=== PATIENT | female | born 1995 | race Hispanic/Latino ===

== ENCOUNTER 2021-08-26 16:48 | Emergency (ER) | payer OTHER ==
[~2021-08-26] VITALS: Ht 154.9 cm; Wt 63.5 kg
[2021-08-26 17:12] LABS: APPEARANCE,URINE Clear (CLEAR); BILIRUBIN,URINE Negative (NEGATIVE); COLOR,URINE Dark Yellow (YELLOW); GLUCOSE, URINE (UA) Negative (NEGATIVE); KETONES,URINE 15 mg/dL (NEGATIVE); LEUKOCYTE ESTERASE ,URINE Negative (NEGATIVE); NITRATE,URINE Negative (NEGATIVE); OCCULT BLOOD,URINE Negative (NEGATIVE); PROTEIN,URINE POS 1+ mg/dL (NEGATIVE)
[2021-08-26 17:33] LABS: RBC,URINE 0-1 /HPF (0-1); WBC,URINE 0-1 /HPF (0-1)
[2021-08-26 17:34] LABS: BACTERIA,URINE Rare /HPF (None Seen); HYALINE CASTS, URINE 0-1 /LPF (0-1 /LPF); MUCUS,URINE Few LPF (None Seen); SQUAMOUS EPITHELIAL CELL,UR Few /HPF (0-2)
[2021-08-26 17:39] LABS: BASOPHILS % (AUTO) 0.3 % (0.0-5.0); HEMATOCRIT 36.2 % (36-48); LYMPHOCYTES % (AUTO) 18.1 % (21.0-51.0); MEAN CORPUSCULAR HEMOGLOBIN 25.8 pg (27.0-33.0); MEAN CORPUSCULAR VOLUME 80.4 fL (79-99); MONOCYTES % (AUTO) 8.9 % (3.0-13.0); NEUTROPHILS % (AUTO) 72.4 % (40.0-77.0); PLATELET COUNT (AUTO) 266 K/uL (130-400); RED CELL DISTRIBUTION WIDTH 15.4 % (11.0-15.5)
[2021-08-26] MEDS ORDERED: 0.9%NACL 1000ML 1,000 ML IV ONE (18:30)
[2021-08-26] MEDS ORDERED: ONDANSETRON 4MG INJ IVP ONE (18:30)
[2021-08-26 19:05] LABS: ALBUMIN 4.1 g/dL (3.5-5.0); BILIRUBIN,TOTAL 0.6 mg/dL (0.2-1.0); CREATININE 0.8 mg/dL (0.5-1.5); POTASSIUM 3.6 mmol/L (3.5-5.1); TOTAL PROTEIN, SERUM 8.3 g/dL (6.0-8.3)
[2021-08-26] MEDS ORDERED: ONDANSETRON 4MG INJ ONE (19:41)
[2021-08-26 22:46] VITALS: BP 98/60
== END 2021-08-26 22:59 | disposition home or self-care (01) ==
LOC: EDH 16:48
DX: O20.0 Threatened abortion (principal); Z3A.01 Less than 8 weeks gestation of pregnancy
CPT/HCPCS: 36415; 76817; 80053; 81001; 84702; 85025; 86900; 86901; 96361; 96374; 99284; J2405

== ENCOUNTER 2021-08-30 20:01 | Emergency (ER) | payer OTHER ==
[~2021-08-30] VITALS: Ht 154.9 cm; Wt 62.1 kg
[2021-08-30 21:10] LABS: BASOPHILS % (AUTO) 0.4 % (0.0-5.0); EOSINOPHILS % (AUTO) 0.3 % (0.0-8.0); LYMPHOCYTES % (AUTO) 23.4 % (21.0-51.0); MEAN CORPUSCULAR HEMOGLOBIN 26.7 pg (27.0-33.0); MEAN CORPUSCULAR HGB CONC 33.1 g/dL (32.0-36.0); MEAN CORPUSCULAR VOLUME 80.5 fL (79-99); MONOCYTES % (AUTO) 8.4 % (3.0-13.0); PLATELET COUNT (AUTO) 289 K/uL (130-400); RED BLOOD CELL COUNT(AUTO) 4.35 MIL/uL (4.00-5.50); RED CELL DISTRIBUTION WIDTH 15.8 % (11.0-15.5); WHITE BLOOD COUNT (AUTO) 7.7 K/uL (4.8-10.8)
[2021-08-30 21:25] LABS: CREATININE 0.8 mg/dL (0.5-1.5); POTASSIUM 3.7 mmol/L (3.5-5.1)
[2021-08-30 21:34] VITALS: BP 121/69
[2021-08-30 21:38] LABS: APPEARANCE,URINE Clear (CLEAR); BILIRUBIN,URINE Negative (NEGATIVE); COLOR,URINE Yellow (YELLOW); GLUCOSE, URINE (UA) Negative (NEGATIVE); KETONES,URINE Negative (NEGATIVE); LEUKOCYTE ESTERASE ,URINE Negative (NEGATIVE); NITRATE,URINE Negative (NEGATIVE); OCCULT BLOOD,URINE Large (NEGATIVE); PROTEIN,URINE Trace mg/dL (NEGATIVE)
[2021-08-30 21:43] LABS: HCG,QUAL RESULT POSITIVE (NEGATIVE)
[2021-08-30 21:51] LABS: BACTERIA,URINE Few /HPF (None Seen); MUCUS,URINE Few LPF (None Seen); SQUAMOUS EPITHELIAL CELL,UR Few /HPF (0-2)
[2021-08-30 22:00] LABS: BILIRUBIN,TOTAL 0.5 mg/dL (0.2-1.0)
== END 2021-08-30 22:18 | disposition home or self-care (01) ==
LOC: EDH 20:01
DX: O20.0 Threatened abortion (principal); Z3A.01 Less than 8 weeks gestation of pregnancy
CPT/HCPCS: 36415; 76817; 80053; 81001; 81025; 84702; 85025; 86900; 86901

== ENCOUNTER 2021-09-03 12:26 | Emergency (ER) | payer OTHER ==
[~2021-09-03] VITALS: Ht 154.9 cm; Wt 62.6 kg
[2021-09-03 12:55] LABS: BASOPHILS % (AUTO) 0.6 % (0.0-5.0); EOSINOPHILS % (AUTO) 0.6 % (0.0-8.0); HEMATOCRIT 37.1 % (36-48); LYMPHOCYTES % (AUTO) 23.5 % (21.0-51.0); MEAN CORPUSCULAR HGB CONC 33.4 g/dL (32.0-36.0); MEAN CORPUSCULAR VOLUME 80.7 fL (79-99); MONOCYTES % (AUTO) 9.2 % (3.0-13.0); NEUTROPHILS % (AUTO) 65.7 % (40.0-77.0); PLATELET COUNT (AUTO) 281 K/uL (130-400); RED CELL DISTRIBUTION WIDTH 16.6 % (11.0-15.5); WHITE BLOOD COUNT (AUTO) 7.2 K/uL (4.8-10.8)
[2021-09-03 12:59] LABS: APPEARANCE,URINE Clear (CLEAR); BILIRUBIN,URINE Negative (NEGATIVE); COLOR,URINE Yellow (YELLOW); GLUCOSE, URINE (UA) Negative (NEGATIVE); KETONES,URINE Negative (NEGATIVE); LEUKOCYTE ESTERASE ,URINE Small (NEGATIVE); NITRATE,URINE Negative (NEGATIVE); OCCULT BLOOD,URINE Large (NEGATIVE); PROTEIN,URINE Negative (NEGATIVE); UROBILINOGEN,URINE 0.2 mg/dL (0.2-1.0)
[2021-09-03 13:00] VITALS: BP 120/73
[2021-09-03 13:04] LABS: CREATININE 0.7 mg/dL (0.5-1.5); POTASSIUM 4.1 mmol/L (3.5-5.1)
[2021-09-03 13:32] LABS: ALBUMIN 4.3 g/dL (3.5-5.0); BILIRUBIN,TOTAL 0.5 mg/dL (0.2-1.0); TOTAL PROTEIN, SERUM 8.7 g/dL (6.0-8.3)
[2021-09-03 13:44] LABS: BACTERIA,URINE Rare /HPF (None Seen); SQUAMOUS EPITHELIAL CELL,UR Rare /HPF (0-2); WBC,URINE 0-1 /HPF (0-1)
== END 2021-09-03 14:39 | disposition home or self-care (01) ==
LOC: EDH 12:26
DX: O20.0 Threatened abortion (principal); Z3A.01 Less than 8 weeks gestation of pregnancy
CPT/HCPCS: 36415; 76801; 80053; 81001; 84702; 85025; 86900; 86901

== ENCOUNTER 2021-10-14 19:41 | Emergency (ER) | payer OTHER ==
[~2021-10-14] VITALS: Ht 154.9 cm; Wt 63.5 kg
[2021-10-14 19:42] VITALS: BP 113/82
[2021-10-14 20:07] LABS: APPEARANCE,URINE CLEAR (CLEAR); BILIRUBIN,URINE NEGATIVE (NEGATIVE); COLOR,URINE YELLOW (YELLOW); GLUCOSE, URINE (UA) NEGATIVE (NEGATIVE); KETONES,URINE NEGATIVE (NEGATIVE); LEUKOCYTE ESTERASE ,URINE NEGATIVE (NEGATIVE); NITRATE,URINE NEGATIVE (NEGATIVE); OCCULT BLOOD,URINE MODERATE (NEGATIVE); PROTEIN,URINE NEGATIVE (NEGATIVE); UROBILINOGEN,URINE 0.2 mg/dL (0.2-1.0)
[2021-10-14 20:14] LABS: HCG,QUAL RESULT POSITIVE (NEGATIVE)
[2021-10-14 20:16] LABS: BASOPHILS % (AUTO) 0.5 % (0.0-5.0); EOSINOPHILS % (AUTO) 1.3 % (0.0-8.0); HEMATOCRIT 35.6 % (36-48); LYMPHOCYTES % (AUTO) 27.5 % (21.0-51.0); MEAN CORPUSCULAR HEMOGLOBIN 28.5 pg (27.0-33.0); MEAN CORPUSCULAR HGB CONC 34.6 g/dL (32.0-36.0); MEAN CORPUSCULAR VOLUME 82.4 fL (79-99); MONOCYTES % (AUTO) 8.6 % (3.0-13.0); NEUTROPHILS % (AUTO) 61.6 % (40.0-77.0); PLATELET COUNT (AUTO) 219 K/uL (130-400); RED BLOOD CELL COUNT(AUTO) 4.32 MIL/uL (4.00-5.50); RED CELL DISTRIBUTION WIDTH 16.6 % (11.0-15.5); WHITE BLOOD COUNT (AUTO) 7.9 K/uL (4.8-10.8)
[2021-10-14 20:27] LABS: CREATININE 0.7 mg/dL (0.5-1.5)
[2021-10-14 20:28] LABS: WBC,URINE 0-1 /HPF (0-1)
[2021-10-14 20:29] LABS: BACTERIA,URINE Rare /HPF (None Seen); SQUAMOUS EPITHELIAL CELL,UR Rare /HPF (0-2)
[2021-10-14 20:50] LABS: ALBUMIN 3.4 g/dL (3.5-5.0); BILIRUBIN,TOTAL 0.2 mg/dL (0.2-1.0); TOTAL PROTEIN, SERUM 7.7 g/dL (6.0-8.3)
== END 2021-10-14 22:51 | disposition home or self-care (01) ==
LOC: EDH 19:41
DX: O20.0 Threatened abortion (principal); Z3A.11 11 weeks gestation of pregnancy
CPT/HCPCS: 36415; 76801; 80053; 81001; 81025; 84702; 85025; 86900; 86901

== ENCOUNTER 2022-03-19 16:06 | Observation (INO) | payer OTHER ==
[~2022-03-19] VITALS: Ht 154.9 cm; Wt 81.6 kg
[2022-03-19 16:20] VITALS: BP 130/87
[2022-03-19] MEDS ORDERED: TERBUTALINE SULFATE VIAL 1MG/ML SQ PRN (17:30)
[2022-03-19] MEDS ORDERED: LACTATED RINGERS 1000ML 1,000 ML IV SCH (17:30)
[2022-03-19 17:45] LABS: APPEARANCE,URINE CLEAR (CLEAR); BILIRUBIN,URINE NEGATIVE (NEGATIVE); COLOR,URINE COLORLESS (YELLOW); GLUCOSE, URINE (UA) NEGATIVE (NEGATIVE); KETONES,URINE NEGATIVE (NEGATIVE); LEUKOCYTE ESTERASE ,URINE 500 Leu/uL (NEGATIVE); NITRATE,URINE NEGATIVE (NEGATIVE); OCCULT BLOOD,URINE NEGATIVE (NEGATIVE); PROTEIN,URINE NEGATIVE (NEGATIVE); UROBILINOGEN,URINE 0.2 mg/dL (0.2-1.0)
[2022-03-19 18:14] LABS: BACTERIA,URINE RARE /HPF (None Seen); SQUAMOUS EPITHELIAL CELL,UR MOD /HPF (0-2)
== END 2022-03-19 18:55 | disposition home or self-care (01) ==
LOC: EDH 16:06 → LDH 16:07
PROVIDERS: ADMIT Obstetrics & Gynecology; ATTEND Obstetrics & Gynecology
DX: O62.9 Abnormality of forces of labor, unspecified (principal); O99.891 Other specified diseases and conditions complicating pregnancy; M54.50 Low back pain, unspecified; O26.893 Other specified pregnancy related conditions, third trimester; N89.8 Other specified noninflammatory disorders of vagina; O36.8130 Decreased fetal movements, third trimester, not applicable or unspecified; Z3A.34 34 weeks gestation of pregnancy; Z79.899 Other long term (current) drug therapy
CPT/HCPCS: 96372; 59025; 96360; 96361; 87088; 81001; G0378 ×3; G0379; J7120; J3105

== ENCOUNTER 2022-04-24 15:12 | Inpatient (IN) | payer OTHER ==
[~2022-04-24] VITALS: Ht 154.9 cm; Wt 85.7 kg
[2022-04-24] MEDS ORDERED: LACTATED RINGERS 500 ML 500 ML IV PRN (15:30)
[2022-04-24] MEDS ORDERED: DINOPROSTONE 10 MG VAGINAL SUPP VG SCH (15:30)
[2022-04-24] MEDS ORDERED: PROMETHAZINE HCL 25 MG/ML 1ML AMPULE IM PRN (15:30)
[2022-04-24] MEDS ORDERED: NALOXONE HCL 0.4 MG/1 ML ML IV PRN (15:30)
[2022-04-24] MEDS ORDERED: EPHEDRINE SULFATE 50 MG/ML AMPULE IVP PRN (15:30)
[2022-04-24] MEDS ORDERED: ROPIVACAINE 0.2% 100ML VIAL 100 ML EP SCH (15:30)
[2022-04-24] MEDS ORDERED: OXYTOCIN-LR 20 UNITS/1000 ML 1,000 ML IV SCH (15:30)
[2022-04-24] MEDS ORDERED: MEPERIDINE-PF 50 MG/ML SYG IVP PRN (15:30)
[2022-04-24 15:56] LABS: HEMATOCRIT 35.9 % (36-48); MEAN CORPUSCULAR HEMOGLOBIN 31.4 pg (27.0-33.0); MEAN CORPUSCULAR HGB CONC 35.9 g/dL (32.0-36.0); MEAN CORPUSCULAR VOLUME 87.3 fL (79-99); RED BLOOD CELL COUNT(AUTO) 4.11 MIL/uL (4.00-5.50); RED CELL DISTRIBUTION WIDTH 13.5 % (11.0-15.5); WHITE BLOOD COUNT (AUTO) 9.5 K/uL (4.8-10.8)
[2022-04-24 15:57] LABS: APPEARANCE,URINE CLOUDY (CLEAR); BILIRUBIN,URINE NEGATIVE (NEGATIVE); COLOR,URINE LIGHT-YELLOW (YELLOW); GLUCOSE, URINE (UA) NEGATIVE (NEGATIVE); KETONES,URINE NEGATIVE (NEGATIVE); LEUKOCYTE ESTERASE ,URINE 500 Leu/uL (NEGATIVE); NITRATE,URINE NEGATIVE (NEGATIVE); OCCULT BLOOD,URINE NEGATIVE (NEGATIVE); PROTEIN,URINE NEGATIVE (NEGATIVE); UROBILINOGEN,URINE 0.2 mg/dL (0.2-1.0)
[2022-04-24 16:05] LABS: BACTERIA,URINE FEW /HPF (None Seen); RBC,URINE 0-1 /HPF (0-1); SQUAMOUS EPITHELIAL CELL,UR MOD /HPF (0-2)
[2022-04-24] MEDS: LACTATED RINGERS 1000ML 1,000 ML IV PRN (17:00)
[2022-04-24 22:39] VITALS: BP 104/80
[2022-04-24] MEDS ORDERED: PREN-196 PO (22:48)
[2022-04-25] MEDS: LACTATED RINGERS 1000ML 1,000 ML IV PRN ×2 (04:27→06:15)
[2022-04-25] MEDS ORDERED: OXYTOCIN-LR 20 UNITS/1000 ML 1,000 ML IV SCH (05:00)
[2022-04-25] MEDS ORDERED: LIDOCAINE HCL 1% 20 ML VIAL ONE (09:05)
[2022-04-25] MEDS ORDERED: BENZOCAINE/LANOLIN/ALOE VERA 60 ML AEROSOL TP PRN (11:00)
[2022-04-25] MEDS ORDERED: ACETAMINOPHEN 325 MG TAB PO PRN (11:00)
[2022-04-25] MEDS ORDERED: WITCH HAZEL 1 PAD TP PRN (11:00)
[2022-04-25] MEDS ORDERED: ACETAMINOPHEN WITH CODEINE 1 TAB TAB PO PRN (11:00)
[2022-04-25] MEDS ORDERED: IBUPROFEN 600 MG TABLET PO PRN (11:00)
[2022-04-25] MEDS ORDERED: DIPH,PERTUSS(ACELL),TET VAC/PF 0.5 ML VIAL IM PRN (11:00)
[2022-04-25] MEDS ORDERED: LANOLIN 30GM OINTMENT TP PRN (11:00)
[2022-04-25] MEDS ORDERED: MEASLES/MUMPS/RUBELLA VACCINE, LIVE 0.5 ML/VIAL SQ PRN (11:00)
[2022-04-25 11:45] VITALS: BP 125/54
[2022-04-25 12:12] LABS: RAPID PLASMA REAGIN NONREACTIVE (NONREACTIVE)
[2022-04-25 16:21] VITALS: BP 115/62
[2022-04-25 19:38] VITALS: BP 115/68
[2022-04-25] MEDS: DOCUSATE SODIUM 100 MG CAP PO SCH (21:00)
[2022-04-25 23:18] VITALS: BP 107/53
[2022-04-26 03:54] VITALS: BP 117/59
[2022-04-26 06:29] LABS: HEMATOCRIT 32.8 % (36-48); MEAN CORPUSCULAR HEMOGLOBIN 31.8 pg (27.0-33.0); MEAN CORPUSCULAR HGB CONC 35.7 g/dL (32.0-36.0); MEAN CORPUSCULAR VOLUME 89.1 fL (79-99); RED BLOOD CELL COUNT(AUTO) 3.68 MIL/uL (4.00-5.50); RED CELL DISTRIBUTION WIDTH 13.7 % (11.0-15.5); WHITE BLOOD COUNT (AUTO) 14.9 K/uL (4.8-10.8)
[2022-04-26 07:23] VITALS: BP 120/72
[2022-04-26] MEDS: DOCUSATE SODIUM 100 MG CAP PO SCH (09:16)
[2022-04-26 12:08] VITALS: BP 122/81
[2022-04-26] MEDS ORDERED: FLU VACC QS2022-23(6MOS UP)/PF 60 MCG/0.5 ML ML IM ONE (14:30)
== END 2022-04-26 15:25 | disposition home or self-care (01) | DRG 805 ==
LOC: LDH 15:13 → WSH 04-25 11:45
PROVIDERS: ADMIT Obstetrics & Gynecology; ATTEND Obstetrics & Gynecology
PROC: 10E0XZZ Delivery of Products of Conception, External Approach (ICD-10-PCS; principal; 2022-04-25)
PROC: 0HQ9XZZ Repair Perineum Skin, External Approach (ICD-10-PCS; 2022-04-25)
PROC: 3E0P7VZ Introduction of Hormone into Female Reproductive, Via Natural or Artificial Opening (ICD-10-PCS; 2022-04-25)
PROC: 3E02340 Introduction of Influenza Vaccine into Muscle, Percutaneous Approach (ICD-10-PCS; 2022-04-26)
DX: O69.1XX0 Labor and delivery complicated by cord around neck, with compression, not applicable or unspecified (principal); O45.93 Premature separation of placenta, unspecified, third trimester; Z37.0 Single live birth; O70.0 First degree perineal laceration during delivery; Z3A.38 38 weeks gestation of pregnancy; Z23 Encounter for immunization
CPT/HCPCS: 36415; 81001; 85027; 86592; 86701; 86850; 86900; 86901; 87088; 87340; 87390; A4351; G0378; J2175; J2550; J2590; J7120; Q2035

== ENCOUNTER 2022-09-15 11:04 | Emergency (ER) | payer OTHER ==
[~2022-09-15] VITALS: Ht 154.9 cm; Wt 81.6 kg
[~2022-09-15 11:04] MED LIST: PREN-196 PO
[2022-09-15 13:17] VITALS: BP 112/56
== END 2022-09-15 13:32 | disposition home or self-care (01) ==
LOC: EDH 11:04
DX: F41.9 Anxiety disorder, unspecified (principal); R21 Rash and other nonspecific skin eruption
CPT/HCPCS: 99281